=== PATIENT | male | born 2000 | race Two or more races ===

== ENCOUNTER 2022-06-12 08:21 | Emergency (ER) | payer OTHER ==
[~2022-06-12] VITALS: Ht 185.4 cm; Wt 97.7 kg
[2022-06-12 08:22] VITALS: BP 156/93
[2022-06-12] MEDS ORDERED: METO1TAB87 PO (08:55)
== END 2022-06-12 09:14 | disposition home or self-care (01) ==
LOC: M ED 08:21
DX: R00.2 Palpitations (principal); Z79.899 Other long term (current) drug therapy; Z77.098 Contact with and (suspected) exposure to other hazardous, chiefly nonmedicinal, chemicals